=== PATIENT | male | born 1980 | race African-American/Black ===

== ENCOUNTER 2016-12-08 05:14 | Inpatient (IN) | payer OTHER ==
[2016-12-08] VITALS (16 sets, daily range): BP systolic 122–156; BP diastolic 71–103
[~2016-12-08] VITALS: Ht 180.3 cm; Wt 71.7 kg
[2016-12-08 06:05] LABS: APPEARANCE,URINE CLEAR; KETONES,URINE 1+ (NEGATIVE); LEUKOCYTE ESTERASE ,URINE NEGATIVE (NEGATIVE); NITRITE,URINE NEGATIVE (NEGATIVE); PH,URINE 5 (4.5-8.0); PROTEIN,URINE NEGATIVE (NEGATIVE); UROBILINOGEN,URINE NORMAL MG/DL (0.0-1.0)
[2016-12-08] MEDS ORDERED: TYLENOL EXTRA500 MG ORAL (06:05)
[2016-12-08] MEDS ORDERED: LR 1000ml 1,000 ML IV SCH (06:10)
[2016-12-08] MEDS ORDERED: Pantoprazole Inj ONE ×2 (06:10→06:11)
[2016-12-08] MEDS ORDERED: Vancomycin 1gm inj IVPB ONE (06:11)
[2016-12-08 06:14] LABS: RBC,URINE 0-2 /HPF (0 - 0); WBC,URINE 0 /HPF (0 - 0)
[2016-12-08] MEDS ORDERED: Thrombin 5000 units TOPIC ONE (06:17)
[2016-12-08] MEDS ORDERED: Thrombin 5000 units spray kit TOPIC ONE (06:18)
[2016-12-08] MEDS ORDERED: Gelfoam Absorbable 1gm powder pkt TOPIC ONE (06:18)
[2016-12-08] MEDS ORDERED: Bupivacaine w/Epi 0.5% 30ml Vial INJ ONE (06:18)
[2016-12-08] MEDS ORDERED: Bacitracin 50000 Units Vial ONE (06:19)
[2016-12-08] MEDS ORDERED: Bacitracin Oint 15gm Tube TOPIC ONE (07:06)
[2016-12-08] MEDS ORDERED: Betadine 10% Oint 15gm TOPIC ONE (07:06)
--- NOTE | 2016-12-08 07:19 | Anethesia Preoperative Eval ---
Anesthesia Pre-op PMH/ROS General Date of Evaluation: December 08, 2016 Anesthesiologist: Marsha ASA Score: ASA 2 Mallampati Score Class I : Soft palate, uvula, fauces, pillars visible Class II: Soft palate, uvula, fauces visible Class III: Soft palate, base of uvula visible Class IV: Only hard plate visible Mallampati Classification: Class I Surgeon: Ty Diagnosis: Neck Pain Surgical Procedure: Posterior Cervical Fusion/Screws at C5-7, Allograft Anesthesia History: none Social History: smoking Family History: no anesthesia problems Allergies: Coded Allergies: No Known Allergies (Unverified , 12/07/16) Medications: see eMAR Past Medical History Pulmonary: Reports: asthma, other - Was a smoker Neurologic/Psychiatric: Reports: depression/anxiety PSxH Narrative: Ant Cervical Fusion Anesthesia Pre-op Phys. Exam Physician Exam Last Vital Signs Date Time Temp Pulse Resp B/P Pulse Ox O2 Delivery O2 Flow Rate FiO2 12/08/16 06:22 97.5 65 20 143/83 97 Room Air Constitutional: NAD Neurologic: CN 2-12 intact Cardiovascular: RRR Respiratory: CTA Gastrointestinal: S/NT/ND Airway Exam Mallampati Score: Class I MO: full ROM: limited Teeth: intact Anesthesia Pre-op A/P Risk Assessment & Plan Assessment: ASA 2 Plan: GA, Glidescope, BIS Status Change Before Surgery: No Pre-Antibiotics Dru Gram Vancomycin, 80 mg Gentamycin IV Given Within 1 Hr of Incision: Yes Time Given: 07:31 Royal Larson MD December 08, 2016 07:19
--- NOTE | 2016-12-08 07:28 | Pre-Procedure Note/Attestation ---
Pre-Procedure Note/Attestation Complete Prior to Procedure Planned Procedure: bilateral Indications for Procedure Pre-Operative Diagnosis: Posterior cervical fusion with lateral mass screws and posterolateral arthrodesis with iliac crest bone marrow aspirate, allograft and autograft from C5 to C7 and left C5-6 decompression. Attestation I attest that I discussed the nature of the procedure; its benefits; risks and complications; and alternatives (and the risks and benefits of such alternatives ), prior to the procedure, with the patient (or the patient's legal sales representative wire rope). I attest that, if there was a reasonable possibility of needing a blood transfusion, the patient (or the patient's legal sales representative wire rope) was given the [place] [employer] standardized written summary, pursuant to the Lionel Yefri Blood Safety Act ([place] Health and Safety Code # 1645, as amended). I attest that I re-evaluated the patient just prior to the surgery and that there has been no change in the patient's H&P, except as documented below: MARK VIEIRA December 08, 2016 07:28
[2016-12-08] MEDS ORDERED: Neostigmine 1mg/ml 10ml Inj ONE (07:30)
[2016-12-08] MEDS ORDERED: fentaNYL 250mcg/5ml ONE (07:30)
[2016-12-08] MEDS ORDERED: Lidocaine 1% MPF 10mg/ml 5ml ONE (07:30)
[2016-12-08] MEDS ORDERED: Dexamethasone 4mg/ml vial ONE (07:30)
[2016-12-08] MEDS ORDERED: LR 1000ml ONE (07:30)
[2016-12-08] MEDS ORDERED: Nimbex 2mg/ml Inj 10ML IVP ONE (07:30)
[2016-12-08] MEDS ORDERED: Propofol 10mg/ml 100ml btl IV ONE (07:30)
[2016-12-08] MEDS ORDERED: Lidocaine 1% Plain 30 ml INJ ONE (07:30)
[2016-12-08] MEDS ORDERED: Sterile Water Irrig 1000ml IRRIG ONE (07:30)
[2016-12-08] MEDS ORDERED: Glycopyrrolate 0.2mg/ml 1ml Vial ONE (07:30)
--- NOTE | 2016-12-08 08:50 | Immediate Post-Op Evaluation ---
Immediate Post-Op Evalulation Immediate Post-Op Evalulation Procedure: Posterior Cervical Fusion/Screws at C5-7, Allograft Date of Evaluation: December 08, 2016 Time of Evaluation: 11:48 IV Fluids: 1100 LR Blood Products: 0 Estimated Blood Loss: 50 Urinary Output: 300 Blood Pressure Systolic: 129 Blood Pressure Diastolic: 71 Pulse Rate: 89 Respiratory Rate: 14 O2 Sat by Pulse Oximetry: 100 Temperature (Fahrenheit): 97.4 Pain Score (1-10): 3 Nausea: No Vomiting: No Complications 0 Patient Status: awake, reacts, patent, extubated, none Hydration Status: adequate Dru Gram Vancomycin , 80 mg Gentamycin IV Given Within 1 Hr of Incision: Yes Time Given: 07:31 Royal Larson MD December 08, 2016 08:50
[2016-12-08] MEDS ORDERED: LR 1000ml 1,000 ML IVLG SCH (08:54)
[2016-12-08] MEDS ORDERED: DiphenhydrAMINE 50mg/ml Inj IVP PRN (09:00)
[2016-12-08] MEDS ORDERED: LORazepam Inj 2mg/ml 1ml IV PRN (09:00)
[2016-12-08] MEDS ORDERED: Atropine Inj 1mg/10ml Syr IV PRN (09:00)
[2016-12-08] MEDS ORDERED: Norco 7.5mg/325mg tab ORAL PRN ×2 (09:00→12:00)
[2016-12-08] MEDS ORDERED: Midazolam 2mg/2ml Inj IVP PRN (09:00)
[2016-12-08] MEDS ORDERED: fentaNYL 100 mcg/2 mL IV PRN (09:00)
[2016-12-08] MEDS ORDERED: Norco 5mg/325mg tab ORAL PRN (09:00)
[2016-12-08] MEDS ORDERED: Hydromorphone 0.5mg/0.5ml inj IVP PRN (09:00)
[2016-12-08] MEDS ORDERED: Metoclopramide 10mg/2ml Inj IVP PRN (09:00)
[2016-12-08] MEDS ORDERED: Ketorolac 60mg Inj IV PRN (09:00)
[2016-12-08] MEDS ORDERED: Meperidine 25mg/0.5ml Inj IV PRN (09:00)
[2016-12-08] MEDS ORDERED: Oxycodone/Acetaminophen 5-325 ORAL PRN (09:00)
[2016-12-08] MEDS ORDERED: Ketorolac 30mg Inj IV PRN (09:00)
[2016-12-08] MEDS: Acetaminophen (Non formulary) 100 ML IV SCH (09:30)
--- NOTE | 2016-12-08 11:40 | Brief Operative Note ---
Immediate Post Operative Note Operative Note Chief Complaint: Neck pain and left upper extremity radiculopathy Pre-op Diagnosis: Intractable neck pain, incomplete fusion at C5-6, Left upper extremity radiculopathy Procedure: 1. Left cervical 5 hemilaminotomy, medial facetectomy and foraminotomy 2. lateral mass screw insertion at C5, C6 and C7 levels, bilaterally, [place] system, with 50 mm rods. 3. [place] of local bone from laminotomy for grafting 4. Posterolateral arthrodesis at C5-6 and C6-7 levels with autologous bone, allograft and bone marrow aspirate, bilaterally 5. Intraoperative neuromonitoring, SSEPs, MEPS and electromyography. 6. Microdissection using operative microscope, internal neurolysis of left C6 root. 7. Right iliac crest bone marrow aspiration. 9. Placement of epidural drain. Post-op Diagnosis: Intractable neck pain, incomplete fusion at C5-6, Left upper extremity radiculopathy Post-op Diagnosis: same as pre-op Findings: consistent w/pre-op dx studies Surgeon: Mark Crawford MD Additional Surgeons: Roman Roper MD Anesthesiologist: Marsha Anesthesia: general Specimen: none Complications: none Condition: stable Fluids: 1.5 Estimated Blood Loss: minimal Drains: hemovac Implant(s) used?: Yes - [place] screws and rods, Jero allograft MARK CRAWFORD December 08, 2016 11:40
[2016-12-08] MEDS ORDERED: traMADol 50mg tab ORAL PRN (12:00)
[2016-12-08] MEDS ORDERED: Milk of Magnesia 30ml Ud ORAL PRN (12:00)
--- NOTE | 2016-12-08 12:04 | General Progress Note ---
Progress Note Progress Note Neurosurgery Post-op S/ Comfortable O/ Af Vsnl Alert and oriented Moves all extremities well Drain has minimal output doing well Family updated admit MARK VIEIRA December 08, 2016 12:04
--- NOTE | 2016-12-08 12:21 | Diagnostic Imaging Report ---
Indications: Neck pain, cervical fusion Technique: Above procedure including fluoroscopy performed by Dr. Crawford. Portable intraoperative spot film images of the cervical spine performed in AP and lateral projections. Findings: Comparison: None Initial images demonstrate fusion hardware within the C5-6 disc space, paper clips overlying the cervical spine at C4-5 and C6-7. Subsequent images demonstrate placement of bilateral pedicle screws at C5-C7, bridged by longitudinal rods bilaterally. IMPRESSION: Intraoperative changes as described
[2016-12-08] MEDS: HYDROmorphone 1mg/ml Carpuject IVP PRN ×2 (14:14→21:17)
[2016-12-08] MEDS: NS w/KCl 20mEq 1,000 ML IV SCH (15:40)
[2016-12-08 15:43] LABS: CALCIUM 8.7 mg/dL (8.6-10.2); CARBON DIOXIDE 26 mEQ/L (20-30); CHLORIDE 99 mEQ/L (98-107); CREATININE 0.8 mg/dL (0.7-1.2); GLOMERULAR FILTRATION RATE > 60 mL/min (>60); HEMOLYSIS 4; POTASSIUM 4.1 mEQ/L (3.4-4.9); SODIUM 138 mEQ/L (135-145)
[2016-12-08 15:44] LABS: ANION GAP 13 (5-15)
[2016-12-08] MEDS: Docusate 100mg cap ORAL SCH (17:26)
[2016-12-08] MEDS: Vancomycin 1 GM in D5W 275 ML IVPB SCH (18:18)
[2016-12-08] MEDS: Cyclobenzaprine 10mg Tab ORAL PRN (18:18)
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
[2016-12-09] VITALS: BP 146/79
[2016-12-09] MEDS: NS w/KCl 20mEq 1,000 ML IV SCH (02:29)
[2016-12-09] MEDS: HYDROmorphone 1mg/ml Carpuject IVP PRN (03:49)
[2016-12-09 04:00] VITALS: BP 142/73
[2016-12-09 07:24] LABS: ANION GAP 14 (5-15); CALCIUM 9.1 mg/dL (8.6-10.2); CARBON DIOXIDE 27 mEQ/L (20-30); CHLORIDE 98 mEQ/L (98-107); CREATININE 0.8 mg/dL (0.7-1.2); GLOMERULAR FILTRATION RATE > 60 mL/min (>60); HEMOLYSIS 6; POTASSIUM 4.5 mEQ/L (3.4-4.9); SODIUM 139 mEQ/L (135-145)
[2016-12-09] MEDS: Vancomycin 1 GM in D5W 275 ML IVPB SCH (07:44)
[2016-12-09 08:00] VITALS: BP 133/87
--- NOTE | 2016-12-09 08:04 | General Progress Note ---
Progress Note Progress Note Neurosurgery POD#1 S/ Incisonal pain under control. No arm pain. Residual numbness and tingling in the left upper extremity ni changed from baseline. O/ VS: Last 24 Hour Vital Signs Date Time Temp Pulse Resp B/P Pulse Ox O2 Delivery O2 Flow Rate FiO2 12/09/16 04:00 98.2 64 17 142/73 99 Nasal Cannula 2.0 12/09/16 00:00 98.2 69 16 146/79 100 Nasal Cannula 2.0 12/08/16 20:00 99 Nasal Cannula 2.0 12/08/16 20:00 97.9 71 18 156/93 99 Nasal Cannula 2.0 12/08/16 20:00 Nasal Cannula 2.0 28 12/08/16 19:17 97.0 12/08/16 16:00 97.0 71 18 130/78 95 Nasal Cannula 2.0 12/08/16 14:44 97.0 12/08/16 14:30 97.7 75 19 122/73 99 Nasal Cannula 2.0 12/08/16 13:45 97.0 66 16 138/94 100 Nasal Cannula 2.0 12/08/16 13:30 97.2 80 18 153/103 99 Nasal Cannula 2.0 12/08/16 13:05 97.0 65 14 147/97 100 Nasal Cannula 3.0 12/08/16 12:49 69 13 137/95 100 Nasal Cannula 3.0 12/08/16 12:40 66 13 142/91 100 Nasal Cannula 3.0 12/08/16 12:30 73 12 146/92 100 Nasal Cannula 3.0 12/08/16 12:20 68 12 143/98 100 Nasal Cannula 3.0 12/08/16 12:10 72 14 156/97 100 Nasal Cannula 3.0 12/08/16 12:00 71 16 156/99 98 Nasal Cannula 3.0 12/08/16 11:47 68 16 126/73 98 Simple Mask 10.0 12/08/16 11:42 77 16 139/78 100 Simple Mask 10.0 12/08/16 11:38 89 14 100 12/08/16 11:37 97.0 90 16 129/71 100 Simple Mask 10.0 On exam, Alert and orientedx4 Moves all extremities well sensory exam at baseline dressring changed and HV drain removed. Wound C/D/I Labs Laboratory Tests Test 12/08/16 15:08 12/09/16 05:00 Sodium Level 138 mEQ/L (135-145) 139 mEQ/L (135-145) Potassium Level 4.1 mEQ/L (3.4-4.9) 4.5 mEQ/L (3.4-4.9) Chloride Level 99 mEQ/L (98-107) 98 mEQ/L (98-107) Carbon Dioxide Level 26 mEQ/L (20-30) 27 mEQ/L (20-30) Anion Gap 13 (5-15) 14 (5-15) Blood Urea Nitrogen 14 mg/dL (7-23) 9 mg/dL (7-23) Creatinine 0.8 mg/dL (0.7-1.2) 0.8 mg/dL (0.7-1.2) Estimat Glomerular Filtration Rate > 60 mL/min (>60) > 60 mL/min (>60) Glucose Level 131 mg/dL (74-106) H 99 mg/dL (74-106) Calcium Level 8.7 mg/dL (8.6-10.2) 9.1 mg/dL (8.6-10.2) Doing well cervical collar to continue d/c planning and instructions ngive n to nursing staff and pt. MARK VIEIRA December 09, 2016 08:04
--- NOTE | 2016-12-09 08:32 | Discharge Summary ---
DATE OF ADMISSION: 12/08/2016 DATE OF DISCHARGE: 11/29/2016 DISCHARGE DIAGNOSES: Status post posterior cervical fusion C5 through C7 and left C5-C6 decompression. HISTORY OF PRESENT ILLNESS: Refer to the chart for detailed History and Physical. HOSPITAL COURSE: The patient was admitted on 12/08/2016 and underwent an uneventful posterior cervical fusion and stabilization C5 through C7 with iliac crest bone marrow aspiration and left C5-C6 decompression. He has done well postoperatively. He is being discharged home with appropriate discharge instructions. DISPOSITION: Home. DISCHARGE INSTRUCTIONS: The patient and his family are instructed regarding wound care. In case of fever more than 101.5 degrees, drainage, chills, and redness, the patient is to contact Dr. Crawford or go to the nearest ER. DISCHARGE MEDICATIONS: Flexeril, [place], and Colace as prescribed. ACTIVITY: The patient is asked to wear a cervical collar for at least four weeks. He is to avoid lifting more than 5 pounds on occasional or repetitive basis. FOLLOWUP: Follow up with Dr. Crawford in two weeks. DIET: Soft mechanical for the first week. COMPLICATIONS: None. CONSULTATIONS: Internal Medicine, Dr. Kelly. Griffin Crawford M.D. DR: RIOS JOB#: [id number] CC:
[2016-12-09] MEDS: Docusate 100mg cap ORAL SCH (08:37)
[2016-12-09] MEDS: Norco 7.5mg/325mg tab ORAL PRN ×2 (08:37→12:54)
[2016-12-09] MEDS: Acetaminophen (Non formulary) 100 ML IV SCH (08:40)
[2016-12-09] MEDS ORDERED: NORCO 10-325 T1 EACH ORAL (09:46)
[2016-12-09] MEDS ORDERED: COLACE100 MG ORAL (09:47)
[2016-12-09] MEDS ORDERED: CYCLOBENZAPRINE10 MG ORAL (09:47)
--- NOTE | 2016-12-09 10:44 | 48 Hour Post Anesthesia Eval ---
Post Anesthesia Evaluation Procedure: Posterior Cervical Fusion/Screws at C5-7, Allograft Date of Evaluation: December 09, 2016 Time of Evaluation: 10:00 Blood Pressure Systolic: 133 0: 87 Pulse Rate: 60 Respiratory Rate: 18 Temperature (Fahrenheit): 98.2 O2 Sat by Pulse Oximetry: 100 Airway: patent Nausea: No Vomiting: No Pain Intensity: 2 Hydration Status: adequate Cardiopulmonary Status: at baseline Mental Status/LOC: patient returned to baseline Post-Anesthesia Complications: 0 Follow-up care needed: N/A - further care as per primary team THAI ORTIZ M.D. December 09, 2016 10:44
[2016-12-09 12:00] VITALS: BP 151/98
[2016-12-09] MEDS: Cyclobenzaprine 10mg Tab ORAL PRN (15:44)
[2016-12-09 16:00] VITALS: BP 108/64
== END 2016-12-09 16:30 | disposition home or self-care (01) | DRG 30 ==
LOC: SDSOVERFLO 05:14 → 3E 13:30
PROC: 07DR3ZZ Extraction of Iliac Bone Marrow, Percutaneous Approach (ICD-10-PCS; principal; 2016-12-08 07:00)
PROC: 0RG2071 Fusion of 2 or more Cervical Vertebral Joints with Autologous Tissue Substitute, Posterior Approach, Posterior Column, Open Approach (ICD-10-PCS; principal; 2016-12-08 07:00)
DX: M54.12 Radiculopathy, cervical region (principal); V89.2XXS Person injured in unspecified motor-vehicle accident, traffic, sequela
CPT/HCPCS: 36415; 72040; 76001; 80048; 81001; 87081; 94003; 94150; 94760; J2405; J2710